=== PATIENT | male | born 1985 | race Caucasian/White ===

== ENCOUNTER 2016-11-17 20:05 | Emergency (ER) | payer OTHER ==
[~2016-11-17 20:05] MED LIST: Azithromycin 250 MG Tab ONE
--- NOTE | 2016-11-17 20:51 | EDM.PDOC ---
ED HPI GENERAL MEDICAL PROBLEM - General Chief Complaint: General Stated Complaint: COLD SYMPTOMS Time Seen by Provider: 11/17/16 20:15 Source of Information: Reports: Patient History Limitations: Reports: No limitations - History of Present Illness INITIAL COMMENTS - FREE TEXT/NARRATIVE: This is a 31yo M here for chest congestion and cough for a week. Patient denies any fever or chills, denies chest pain, denies sob. Patient has drainage and sore throat. Onset: gradual Duration: Week(s):, Constant Severity: mild Improves with: Reports: None Worsens with: Reports: None Associated Symptoms: Reports: denies other symptoms ED ROS GENERAL - Review of Systems Review Of Systems: ROS reveals no pertinent complaints other than HPI. ED EXAM, GENERAL - Physical Exam Exam: See Below Exam Limited By: No limitations General Appearance: alert, WD/WN, mild distress Eye Exam: bilateral eye: EOMI, PERRL Ears: normal external exam Nose: normal inspection, normal mucosa Throat/Mouth: Normal inspection, Normal lips, Inflammation Head: atraumatic, normocephalic Neck: normal inspection, supple, non-tender Respiratory/Chest: no respiratory distress, rhonchi Cardiovascular: normal peripheral pulses, regular rate, rhythm Peripheral Pulses: 2+: dorsalis pedis (L), dorsalis pedis (R) GI/Abdominal: normal bowel sounds, soft, non tender Back Exam: normal inspection, full range of motion Extremities: normal inspection, normal range of motion Neurological: alert, oriented, CN II-XII intact Psychiatric: normal affect, normal mood Skin Exam: Warm, Dry, Intact Departure - Departure Time of Disposition: 20:50 Disposition: Home, Self-Care 01 Condition: good Clinical Impression: Chest congestion, Cough Instructions: Azithromycin tablets, Upper Respiratory Infection, Adult, Easy-to -Read Referrals: PCP,None [Primary Care Provider] - Forms: ED Department Discharge Additional Instructions: Begin taking prescribed Azithromycin tonight as directed: 2 tablets tonight, then 1 tablet by mouth daily until all are gone. Drink plenty of fluids and get plenty of rest. May take ibuprofen and/or tylenol, according to package instructions as needed for pain/comfort/mild fever present. Should symptoms persist, or worsen, follow up in clinic with regular provider. Call with any questions.
[2016-11-17 23:47] VITALS: BP 133/80
== END 2016-11-17 20:45 | disposition home or self-care (01) ==
LOC: LB.ED 20:05
DX: R05 Cough (principal); R09.89 Other specified symptoms and signs involving the circulatory and respiratory systems
CPT/HCPCS: 99283; A9270

== ENCOUNTER 2017-09-27 22:23 | Inpatient (IN) | payer OTHER ==
[2017-09-28 08:41] VITALS: BP 139/84
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
--- NOTE | 2017-09-28 14:39 | PCM.PN ---
- General Info Date of Service: 09/28/17 Subjective Update: Patient states he feels better but tired. He has not talked to his again and is concerned of his new situation and worried about seeing his children. He denies any suicidal ideation and is remorseful. He denies any concerns and willing to work towards improving his situation and following any plan available. - Review of Systems General: Reports: No Symptoms HEENT: Reports: No Symptoms Pulmonary: Reports: No Symptoms Cardiovascular: Reports: No Symptoms Gastrointestinal: Reports: No Symptoms Genitourinary: Reports: No Symptoms Musculoskeletal: Reports: No Symptoms Skin: Reports: No Symptoms Neurological: Reports: No Symptoms Psychiatric: Reports: No Symptoms - Patient Data Vitals - Most Recent: Last Vital Signs Temp 37.1 C 09/28/17 08:00 Pulse 97 09/28/17 08:00 Resp 12 09/28/17 08:00 BP 139/84 09/28/17 08:00 Pulse Ox 99 09/28/17 08:00 Weight - Most Recent: 113.398 kg Med Orders - Current: Current Medications Quetiapine Fumarate (Seroquel) 75 mg PO BEDTIME PRN PRN Reason: Agitation Topiramate (Topamax) 25 mg PO BID TOSHA Discontinued Medications Duloxetine HCl (Cymbalta) 120 mg PO BEDTIME TOSHA Trazodone HCl (Trazodone) 100 mg PO BEDTIME TOSHA - Exam General: Alert, Oriented HEENT: Pupils Equal Neck: Supple Lungs: Clear to Auscultation, Normal Respiratory Effort Cardiovascular: Regular Rate, Regular Rhythm GI/Abdominal Exam: Normal Bowel Sounds Back Exam: Normal Inspection Extremities: Normal Inspection - Problem List & Annotations (1) Depression with suicidal ideation SNOMED Code(s): 74036775 Code(s): F32.9 - MAJOR DEPRESSIVE DISORDER, SINGLE EPISODE, UNSPECIFIED; R45.851 - SUICIDAL IDEATIONS Status: Acute Priority: High Current Visit: Yes (2) History of suicidal ideation SNOMED Code(s): 603683977 Code(s): Z86.59 - PERSONAL HISTORY OF OTHER MENTAL AND BEHAVIORAL DISORDERS Status: Acute Priority: High Current Visit: Yes - Problem List Review Problem List Initiated/Reviewed/Updated: Yes - My Orders Last 24 Hours: My Active Orders 09/28/17 00:53 Suicide Precautions [] Routine 09/28/17 14:36 QUEtiapine [SEROquel] 75 mg PO BEDTIME PRN 09/28/17 20:00 Topiramate [Topamax] 25 mg PO BID 09/28/17 Breakfast Regular Diet [DIET] - Plan Plan:: Patient will be admitted to inpatient care and we will follow up Dr. Quevedo psychiatric telepsych consult tomorrow. Counseled patient and patient agrees to voluntarily stay, otherwise we will place him on a hold. Patient understands treatment plan including possible admission to inpatient psych. He want to seek help and resolve or be able to cope with these concerns. Placed on one-on-one monitoring and care. Patient denies any current suicidal ideations and is very remorseful. does state that when he has gotten angry in the past he has been remorseful but he continues to act out in the future despite stating he would not do those things again. Patient plan pending Dr. Quevedo-Psychiatrist evaluation. 09/28/17 Dr. Quevedo to evaluate today. We will continue current monitoring and meds at this time. No further changes until Dr. Quevedo can evaluate and adjust meds. Patient denies any further suicidal ideation or thoughts. He is comfortable with plan of care.
[2017-09-28] MEDS: Topiramate 25 MG Tab PO SCH (19:40)
[2017-09-28] MEDS ORDERED: DULoxetine 60 MG Cap PO SCH (20:00)
[2017-09-28] MEDS ORDERED: traZODone 100 MG Tab PO SCH (20:00)
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
[2017-09-29] MEDS: Topiramate 25 MG Tab PO SCH ×2 (09:00→20:37)
--- NOTE | 2017-09-29 14:17 | PCM.PN ---
- General Info Date of Service: 09/29/17 Subjective Update: Patient states he is feeling better and calm. He continues to deny any suicidal ideation. He state he did recently talk to his and arrange that he may go home with stipulations. Patient is feeling improved and denies any concerns. He is very ameniable to any plan of care. - Review of Systems General: Reports: No Symptoms HEENT: Reports: No Symptoms Pulmonary: Reports: No Symptoms Cardiovascular: Reports: No Symptoms Gastrointestinal: Reports: No Symptoms Genitourinary: Reports: No Symptoms Musculoskeletal: Reports: No Symptoms Neurological: Reports: No Symptoms Psychiatric: Reports: No Symptoms - Patient Data Vitals - Most Recent: Last Vital Signs Temp 37.1 C 09/29/17 08:00 Pulse 88 09/29/17 08:00 Resp 16 09/29/17 08:00 BP 144/82 H 09/29/17 08:00 Pulse Ox 99 09/29/17 08:00 Weight - Most Recent: 113.398 kg I&O - Last 24 Hours: Intake & Output 09/28/17 09/29/17 09/29/17 22:59 06:59 14:59 Intake Total 210 Balance 210 Med Orders - Current: Current Medications Quetiapine Fumarate (Seroquel) 75 mg PO BEDTIME [facility] Last Admin: 09/28/17 19:41 Dose: 75 mg Topiramate (Topamax) 25 mg PO BID [facility] Last Admin: 09/28/17 19:40 Dose: 25 mg Discontinued Medications Duloxetine HCl (Cymbalta) 120 mg PO BEDTIME [facility] Quetiapine Fumarate (Seroquel) 75 mg PO BEDTIME PRN PRN Reason: Agitation Trazodone HCl (Trazodone) 100 mg PO BEDTIME [facility] - Exam General: Alert, Oriented HEENT: Pupils Equal, Pupils Reactive, EOMI Neck: Supple Lungs: Clear to Auscultation, Normal Respiratory Effort Cardiovascular: Regular Rate, Regular Rhythm GI/Abdominal Exam: Normal Bowel Sounds Extremities: Normal Inspection Neurological: No New Focal Deficit Psy/Mental Status: Alert, Normal Affect, Normal Mood - Problem List & Annotations (1) Depression with suicidal ideation SNOMED Code(s): 91253783 Code(s): F32.9 - MAJOR DEPRESSIVE DISORDER, SINGLE EPISODE, UNSPECIFIED; R45.851 - SUICIDAL IDEATIONS Status: Acute Priority: High Current Visit: Yes (2) History of suicidal ideation SNOMED Code(s): 492908351 Code(s): Z86.59 - PERSONAL HISTORY OF OTHER MENTAL AND BEHAVIORAL DISORDERS Status: Acute Priority: High Current Visit: Yes - Problem List Review Problem List Initiated/Reviewed/Updated: Yes - My Orders Last 24 Hours: My Active Orders 09/28/17 20:00 QUEtiapine [SEROquel] 75 mg PO BEDTIME Topiramate [Topamax] 25 mg PO BID 09/29/17 FREE T3 [REF] Routine FREE T4 [REF] Routine - Plan Plan:: Patient will be admitted to inpatient care and we will follow up Dr. Quevedo psychiatric telepsych consult tomorrow. Counseled patient and patient agrees to voluntarily stay, otherwise we will place him on a hold. Patient understands treatment plan including possible admission to inpatient psych. He want to seek help and resolve or be able to cope with these concerns. Placed on one-on-one monitoring and care. Patient denies any current suicidal ideations and is very remorseful. does state that when he has gotten angry in the past he has been remorseful but he continues to act out in the future despite stating he would not do those things again. Patient plan pending Dr. Quevedo-Psychiatrist evaluation. 09/29/17 Patient plan for close monitoring of new medications. We will monitor for side effects and return of suicidal ideations. Counseled and discussed having [employer] come and discuss situation and patient will defer at this time. He will keep his Psychologist appointment at this time. He is willing to go to inpatient Psych if needed. [facility] in touch and willing to accept patient if needed. Discussed Dr. Quevedo's evaluation and management and with patient being stable we will monitor another night for any further side effects and discharge in the am. Patient counseled on plan for discharge. He states he understands if his obtains a restraining order he will not be allowed home and will find a place to stay elsewhere. He will do what is needed of him to gain her trust he states. He will obtain any and all help from Psychiatry and Psychology per patient. We will monitor tonight and plan for discharge tomorrow.
--- NOTE | 2017-09-30 10:50 | PCM.DCSUM1 ---
Discharge Summary - Discharge Data Discharge Date: 09/30/17 Discharge Disposition: Home, Self-Care 01 Condition: Stable - Discharge Diagnosis/Problem(s) (1) Depression with suicidal ideation SNOMED Code(s): 41665063 ICD Code: F32.9 - MAJOR DEPRESSIVE DISORDER, SINGLE EPISODE, UNSPECIFIED; R45.851 - SUICIDAL IDEATIONS Status: Resolved Priority: High Current Visit : Yes (2) History of suicidal ideation SNOMED Code(s): 780581696 ICD Code: Z86.59 - PERSONAL HISTORY OF OTHER MENTAL AND BEHAVIORAL DISORDERS Status: Chronic Priority: High Current Visit: Yes - Patient Instructions Diet: Usual Diet as Tolerated Activity: As Tolerated Driving: May Drive Today Showering/Bathing: May Shower - Discharge Plan Prescriptions/Med Rec: QUEtiapine Fumarate [Seroquel] 75 mg PO BID #30 tablet Topiramate [Topamax] 25 mg PO BID #60 tablet Home Medications: Home Meds QUEtiapine Fumarate [Seroquel] 75 mg PO BID #30 tablet 09/30/17 [Rx] Topiramate [Topamax] 25 mg PO BID #60 tablet 09/30/17 [Rx] Patient Handouts: Self-Destructive Behavior, Suicidal Feelings: How to Help Yourself, Quetiapine tablets, Helping Someone Who is Suicidal, Topiramate tablets Forms: ED Department Discharge Referrals: PCP,None [Primary Care Provider] - - Discharge Summary/Plan Comment Discharge Summary/Plan Comment: Counseled on follow up with PCP for further Psychiatry evaluation and management. He states [facility] in [facility]. He will continue to Psychology visit which he states is in [place]. Patient has discussed plan with and she is agreeable that he goes home with rules and stipulations. Patient agrees to all of Wifes' stipulations and rules. Patient feels improved and we will discharge with medications and follow up. - General Info Date of Service: 09/30/17 - Review of Systems General: Reports: No Symptoms Pulmonary: Reports: No Symptoms Cardiovascular: Reports: No Symptoms Neurological: Reports: No Symptoms Psychiatric: Reports: No Symptoms - Patient Data Vitals - Most Recent: Last Vital Signs Temp 37.1 C 09/29/17 08:00 Pulse 88 09/29/17 08:00 Resp 16 09/29/17 20:00 BP 144/82 H 09/29/17 08:00 Pulse Ox 99 09/29/17 08:00 Weight - Most Recent: 113.398 kg I&O - Last 24 hours: Intake & Output 09/29/17 09/30/17 09/30/17 22:59 06:59 14:59 Intake Total 210 Balance 210 Med Orders - Current: Current Medications Quetiapine Fumarate (Seroquel) 75 mg PO BEDTIME [facility] Last Admin: 09/29/17 20:37 Dose: 75 mg Topiramate (Topamax) 25 mg PO BID [facility] Last Admin: 09/29/17 20:37 Dose: 25 mg Discontinued Medications Duloxetine HCl (Cymbalta) 120 mg PO BEDTIME [facility] Quetiapine Fumarate (Seroquel) 75 mg PO BEDTIME PRN PRN Reason: Agitation Trazodone HCl (Trazodone) 100 mg PO BEDTIME [facility] - Exam General: Reports: Alert, Oriented, Cooperative HEENT: Reports: Pupils Equal Lungs: Reports: Clear to Auscultation, Normal Respiratory Effort Cardiovascular: Reports: Regular Rate, Regular Rhythm GI/Abdominal Exam: Normal Bowel Sounds Back Exam: Reports: Normal Inspection Extremities: Normal Inspection Skin: Reports: Warm, Dry, Intact Neurological: Reports: No New Focal Deficit Psy/Mental Status: Reports: Alert, Normal Affect, Normal Mood *Q Meaningful Use (DIS) - VTE *Q VTE Criteria *Q: - Stroke *Q Stroke Criteria *Q: - AMI *Q AMI Criteria *Q:
[2017-09-30] MEDS: Topiramate 25 MG Tab PO SCH (13:52)
== END 2017-09-30 15:30 | disposition home or self-care (01) | DRG 881 ==
LOC: LB.ED 22:23 → EEVIPCON 23:30 → LB.MS 23:30 → UNDOADMIN 23:30 → LB.MS 09-28 00:49
PROVIDERS: ADMIT Family Medicine; ATTEND Family Medicine
DX: F32.9 Major depressive disorder, single episode, unspecified (principal); R45.851 Suicidal ideations; Z86.59 Personal history of other mental and behavioral disorders; H54.7 Unspecified visual loss; Z88.0 Allergy status to penicillin
CPT/HCPCS: 36415; 80053; 80307; 81001; 84439; 84443; 84481; 85025; 99285; A9270-GY; G0426; G0480; Q3014